=== PATIENT | female | born 1990 | race Two or more races ===

== ENCOUNTER 2018-10-22 17:57 | Emergency (ER) | payer BC, MEDICAID ==
[~2018-10-22] VITALS: Ht 170.2 cm; Wt 93.0 kg
[2018-10-22 18:55] VITALS: BP 133/90
== END 2018-10-22 22:30 | disposition left against medical advice (07) ==
LOC: ER 17:57
DX: Z53.21 Procedure and treatment not carried out due to patient leaving prior to being seen by health care provider (principal)

== ENCOUNTER 2022-08-19 04:46 | Emergency (ER) | payer BC ==
[~2022-08-19] VITALS: Ht 157.5 cm; Wt 95.2 kg
[2022-08-19 05:11] VITALS: BP 149/101
[2022-08-19] MEDS ORDERED: BACITRACIN ZINC OINT UDPKT TOP ONE (06:15)
[2022-08-19] MEDS ORDERED: LIDOCAINE HCL 1% 20ML VIAL (Pyxis) INJ INFIL ONE (06:15)
== END 2022-08-19 08:07 | disposition home or self-care (01) ==
LOC: ER 04:46
DX: S01.21XA Laceration without foreign body of nose, initial encounter (principal); X58.XXXA Exposure to other specified factors, initial encounter; Y93.89 Activity, other specified; Y92.89 Other specified places as the place of occurrence of the external cause; Y99.8 Other external cause status
CPT/HCPCS: 99282; J3490; Z7610

== ENCOUNTER 2022-08-26 13:16 | Emergency (ER) | payer BC ==
[~2022-08-26] VITALS: Ht 157.5 cm; Wt 93.0 kg
[2022-08-26 13:27] VITALS: BP 136/91
== END 2022-08-26 18:57 | disposition left against medical advice (07) ==
LOC: ER 16:10
DX: Z48.02 Encounter for removal of sutures (principal); Z53.21 Procedure and treatment not carried out due to patient leaving prior to being seen by health care provider
CPT/HCPCS: 99281

== ENCOUNTER 2022-08-26 19:04 | Emergency (ER) | payer BC ==
[~2022-08-26] VITALS: Ht 157.5 cm; Wt 93.0 kg
[2022-08-26 19:08] VITALS: BP 133/90
== END 2022-08-26 19:50 | disposition home or self-care (01) ==
LOC: ER 19:04
DX: S01.81XD Laceration without foreign body of other part of head, subsequent encounter (principal); X58.XXXD Exposure to other specified factors, subsequent encounter
CPT/HCPCS: 99281; Z7610

== ENCOUNTER 2024-07-22 17:36 | Emergency (ER) | payer BC ==
[~2024-07-22] VITALS: Ht 157.5 cm; Wt 97.0 kg
[2024-07-22 17:40] VITALS: TEMP 36.6; O2SAT 100
[2024-07-22 21:23] VITALS: TEMP 102
[2024-07-22] MEDS: ACETAMINOPHEN 325MG TABLET PO ONE (21:23)
[2024-07-22 21:24] VITALS: BP 152/94; PULSE 134; RESP 16
[2024-07-22] MEDS: KETOROLAC 30MG/ML VIAL IM ONE (21:24)
[2024-07-22 22:55] LABS: INFLUENZA TYPE A Presumptive Negative (Pres. Neg.)
[2024-07-22 22:56] LABS: INFLUENZA TYPE B Presumptive Negative (Pres. Neg.)
[2024-07-22 22:58] LABS: RESPIRATORY SYNCYTIAL VIRUS Not Detected (Not Detectd)
[2024-07-22] MEDS ORDERED: NAPR220C61 MT (23:42)
[2024-07-23 00:08] LABS: CLARITY URINE TURBID (CLEAR); COLOR URINE DARK YELLOW (YELLOW); GLUCOSE URINE NEGATIVE (NEGATIVE); KETONES URINE TRACE (NEGATIVE); LEUKOCYTE ESTERASE URINE TRACE (NEGATIVE); NITRITE URINE NEGATIVE (NEGATIVE); OCCULT BLOOD URINE 2+ (NEGATIVE); PROTEIN URINE 1+ (NEGATIVE); SPECIFIC GRAVITY URINE 1.045 (1.005-1.030)
[2024-07-23 05:00] LABS: SQUAMOUS EPITHELIAL CELL URINE 1+ /lpf (RARE/1+)
[2024-07-23 05:02] LABS: RBC URINE 0-2 /hpf (0-2)
[2024-07-23 05:04] LABS: BACTERIA URINE TRACE
[2024-07-24] MEDS ORDERED: ACET-2708 MT (09:25)
[2024-07-24] MEDS ORDERED: OXYM30SP26 BOTHNSTRLS (09:30)
[2024-07-24] MEDS ORDERED: BENZ1LOZ73 MT (09:30)
== END 2024-07-23 00:05 | disposition home or self-care (01) ==
LOC: ER 17:36
DX: M79.10 Myalgia, unspecified site (principal)
CPT/HCPCS: 99284; 71045; 81003; 87420; 87804 ×2; 96372; J1885

== ENCOUNTER 2024-07-24 07:58 | Emergency (ER) | payer BC ==
[~2024-07-24] VITALS: Ht 157.5 cm; Wt 91.0 kg
[~2024-07-24 07:58] MED LIST: NAPR220C61 MT
[2024-07-24 08:10] VITALS: O2SAT 98
[2024-07-24 08:19] VITALS: BP 149/99; PULSE 88; RESP 20; TEMP 37.1; O2SAT 100
[2024-07-24 09:00] VITALS: TEMP 98.7
[2024-07-24] MEDS: ACETAMINOPHEN 325MG TABLET PO ONE (09:00)
[2024-07-24] MEDS: DEXAMETHASONE 4MG/ML 1ML VIAL IM ONE (09:02)
[2024-07-24] MEDS ORDERED: ACET-2708 MT (09:25)
[2024-07-24] MEDS ORDERED: BENZ1LOZ73 MT (09:30)
[2024-07-24] MEDS ORDERED: OXYM30SP26 BOTHNSTRLS (09:30)
== END 2024-07-24 09:45 | disposition home or self-care (01) ==
LOC: ER 07:58
DX: J02.9 Acute pharyngitis, unspecified (principal); Z79.899 Other long term (current) drug therapy
CPT/HCPCS: 99284; 71045; 87430; 87070; 96372; J1100